=== PATIENT | male | born 1940 | race Caucasian/White ===

== ENCOUNTER 2016-08-14 09:37 | Outpatient (CLI) | payer MEDICARE, OTHER ==
[2016-08-14 16:16] LABS: ALT (SGPT) 18 U/L (0-55); AST (SGOT) 20 U/L (5-34); Alkaline Phosphatase 53 U/L (40-150); Anion Gap 13 mmol/L (10-20); BUN (Urea Nitrogen) 21 mg/dL (8.4-25.7); Bilirubin, Total 0.9 mg/dL (0.2-1.2); Calc. Creatinine Clearance 0 mL/min (70-130); Calcium 10.1 mg/dL (7.8-10.44); Carbon Dioxide 25 mmol/L (23-31); Cardiac Risk 4.8 (Less than 4.5); Chloride 110 mmol/L (98-107); Cholesterol 157 mg/dL (< 200 Desired); Estimated GFR-MDRD 48; Globulin 2.9 g/dL (2.4-3.5); Glucose 98 mg/dL (83-110); HDL Cholesterol 33 mg/dL (>60 Neg Risk); LDL Cholesterol, Calculated 61 mg/dL; Potassium 4.4 mmol/L (3.5-5.1); Protein, Total 6.9 g/dL (5.8-8.1); Sodium 144 mmol/L (136-145); Triglycerides 317 mg/dL (Less than 150)
[2016-08-14 20:33] LABS: #Basophils 0.1 thou/uL (0.0-0.2); #Eosinphils 0.3 thou/uL (0.0-0.7); #Lymphocytes 2.1 thou/uL (1.20-3.40); #Monocytes 0.6 thou/uL (0.11-0.59); #Neutrophils 2.6 thou/uL (1.40-6.50); %Basophils 1.3 % (0.0-1.0); %Eosinophils 5.5 % (0.0-10.0); %Lymphocytes 36.9 % (21.0-51.0); %Monocytes 10.3 % (0.0-10.0); %Neutrophils 46.1 % (42.0-75.0); Hemoglobin 17.1 g/dL (14.0-18.0); Mean Corpuscular HGB CONC 33.5 g/dL (32.0-36.0); Mean Corpuscular Hemoglobin 32.8 pg (27.0-31.0); Mean Platelet Volume 10.2 fL (7.4-10.4); Platelet Count 179 thou/uL (130-400); RBC Distribution Width 12.3 % (11.5-14.5); Red Blood Cell (RBC) Count 5.21 mill/uL (4.70-6.10); White Blood Cell (WBC) Count 5.7 thou/uL (4.8-10.8)
== END 2016-08-14 09:38 | disposition home or self-care (01) ==
LOC: LABLEX 09:37
PROVIDERS: ATTEND Family Medicine
DX: E78.5 Hyperlipidemia, unspecified (principal); I25.10 Atherosclerotic heart disease of native coronary artery without angina pectoris; E78.1 Pure hyperglyceridemia; J44.9 Chronic obstructive pulmonary disease, unspecified; D75.89 Other specified diseases of blood and blood-forming organs
CPT/HCPCS: 80053; 80061; 84443; 85025

== ENCOUNTER 2016-10-29 20:29 | Emergency (ER) | payer MEDICARE, OTHER ==
[2016-10-29 21:07] LABS: ALT (SGPT) 17 U/L (8-55); AST (SGOT) 19 U/L (5-34); Albumin 4.3 g/dL (3.4-4.8); Alkaline Phosphatase 61 U/L (40-150); Anion Gap 17 mmol/L (10-20); BUN (Urea Nitrogen) 21 mg/dL (8.4-25.7); Bilirubin, Total 1.3 mg/dL (0.2-1.2); Calc. Creatinine Clearance 0 mL/min (70-130); Calcium 10.1 mg/dL (7.8-10.44); Carbon Dioxide 21 mmol/L (23-31); Chloride 106 mmol/L (98-107); Estimated GFR-MDRD 52; Globulin 3.8 g/dL (2.4-3.5); Glucose 98 mg/dL (83-110); Potassium 4.3 mmol/L (3.5-5.1); Protein, Total 8.1 g/dL (5.8-8.1); Sodium 140 mmol/L (136-145)
[2016-10-29 21:09] LABS: CKMB 1.4 ng/mL (0-6.6); Troponin I 0.016 ng/mL (< 0.028)
[2016-10-29 21:24] LABS: Hemoglobin 17.4 g/dL (14.0-18.0); Large Platelets SLIGHT; Lymphocytes 15 % (21-51); MDiff Complete? YES; Mean Corpuscular HGB CONC 33.8 g/dL (32.0-36.0); Mean Corpuscular Hemoglobin 32.1 pg (27.0-31.0); Mean Corpuscular Volume 95.1 fl (80.0-94.0); Mean Platelet Volume 10.6 fL (7.4-10.4); Monocytes 7 % (0-10); Neutrophil 78 % (42-75); PLT Morphology Comment Appears Adequate; Platelet Count 198 thou/uL (130-400); RBC Distribution Width 11.9 % (11.5-14.5); RBC Morphology Normal; White Blood Cell (WBC) Count 11.9 thou/uL (4.8-10.8)
[2016-10-29] MEDS ORDERED: Nitroglycerin 0.4 MG TAB (25 Tab Bottle) ONE (21:28)
--- NOTE | 2016-10-29 23:53 | RAD ---
AP PORTABLE CHEST 29 10/29/2016 2056 HOURS COMPARISON: A 02/10/2015 study from [facility]. FINDINGS: The heart size is normal for an AP film. There is no congestive change or pleural effusion. No foc al pulmonary infiltrates are seen. There are some mild fibrotic changes throughout the lungs, parti cularly the lower halves. They are certainly no worse than before. The trachea is midline. IMPRESSION: No acute thoracic findings. POS: HOME
== END 2016-10-29 23:48 | disposition short-term general hospital (02) ==
LOC: BURERS 20:29
DX: R07.9 Chest pain, unspecified (principal); I25.2 Old myocardial infarction; I25.10 Atherosclerotic heart disease of native coronary artery without angina pectoris; E78.5 Hyperlipidemia, unspecified; Z87.891 Personal history of nicotine dependence; Z79.899 Other long term (current) drug therapy; Z79.82 Long term (current) use of aspirin
CPT/HCPCS: 71010; 80053; 82553; 83880; 84484; 85025; 85379; 93005

== ENCOUNTER 2017-04-16 09:34 | Outpatient (CLI) | payer MEDICARE, OTHER ==
--- NOTE | 2017-04-16 22:27 | CT ---
CT OF THE THORAX WITHOUT CONTRAST 04/16/17 Comparison is made with the prior CT dated 10/30/16 done at [facility]. The study is to cory smith a 6 mm lung nodule seen previously in the right lower lobe. Axial slices were acquired today foll owed by coronal and sagittal reconstructions. The exam was done without IV contrast. There has been no significant interval change. Again noted is a small noncalcified nodule in the righ t lower lobe that measures about 6.5 mm in size. It has not changed in size or appearance over the in terval. No new nodules are seen elsewhere. Diffuse emphysematous changes with fibrosis, particularly in the lung bases is noted. There is some bronchiectasis in the lung bases as well, particularly the right lower lobe. A few areas of mild pleural thickening are seen here and there but are of no great concern. The mediastinum showed no masses or adenopathy. Dense coronary artery calcifications are seen in all segments. Scans into the upper abdomen showed no adrenal mass. Some cysts are seen in the dome of the liver, wh ich have not changed since the prior scan. IMPRESSION: 1. 6.5 mm noncalcified nodule in the right lower lobe with no change in size or appearance since the October 2016 scan. Given the presence of emphysema, this probably puts him in a somewhat higher ris k group than lower. Thus, by Fleischner Society criteria, one would consider further followup within 18 months. 2. Diffuse emphysematous changes with fibrosis and some bronchiectasis, similar to before. 3. Coronary arteriosclerosis. Code LN POS: HOME
== END 2017-04-16 09:35 | disposition home or self-care (01) ==
LOC: BURCT 09:34
PROVIDERS: ATTEND Nurse Practitioner
DX: R91.1 Solitary pulmonary nodule (principal); J43.9 Emphysema, unspecified; J84.10 Pulmonary fibrosis, unspecified; J47.9 Bronchiectasis, uncomplicated; I25.10 Atherosclerotic heart disease of native coronary artery without angina pectoris
CPT/HCPCS: 71250

== ENCOUNTER 2018-04-02 08:25 | Outpatient (CLI) | payer MEDICARE, BC ==
[2018-04-02 12:03] LABS: #Eosinphils 0.1 thou/uL (0.0-0.7); #Lymphocytes 1.9 thou/uL (1.20-3.40); #Monocytes 0.5 thou/uL (0.11-0.59); #Neutrophils 3.3 thou/uL (1.40-6.50); %Basophils 0.7 % (0.0-1.0); %Eosinophils 2.4 % (0.0-10.0); %Lymphocytes 31.7 % (21.0-51.0); %Monocytes 8.5 % (0.0-10.0); %Neutrophils 56.7 % (42.0-75.0); Hemoglobin 16.2 g/dL (14.0-18.0); Mean Corpuscular HGB CONC 33.2 g/dL (32.0-36.0); Mean Corpuscular Hemoglobin 32.6 pg (27.0-31.0); Mean Corpuscular Volume 98.2 fL (78.0-98.0); Platelet Count 216 thou/uL (130-400); RBC Distribution Width 12.1 % (11.5-14.5); Red Blood Cell (RBC) Count 4.96 mill/uL (4.70-6.10); White Blood Cell (WBC) Count 5.9 thou/uL (4.8-10.8)
[2018-04-02 22:10] LABS: AST (SGOT) 19 U/L (5-34); Albumin 4.2 g/dL (3.4-4.8); Alkaline Phosphatase 49 U/L (40-150); Anion Gap 13 mmol/L (10-20); BUN (Urea Nitrogen) 17 mg/dL (8.4-25.7); Bilirubin, Total 0.7 mg/dL (0.2-1.2); Calc. Creatinine Clearance 0 mL/min (70-130); Carbon Dioxide 25 mmol/L (23-31); Cholesterol 171 mg/dl (< 200 Desired); Estimated GFR-MDRD 52; Globulin 2.6 g/dL (2.4-3.5); Protein, Total 6.8 g/dL (5.8-8.1); Triglycerides 250 mg/dL (Less than 150)
[2018-04-02 22:11] LABS: ALT (SGPT) 19 U/L (8-55); Calcium 10.1 mg/dL (7.8-10.44); Cardiac Risk 4.5 (Less than 4.5); Chloride 109 mmol/L (98-107); Glucose 105 mg/dL (83-110); HDL Cholesterol 38 mg/dL (>60 Neg Risk); LDL Cholesterol, Calculated 83 mg/dL; Potassium 4.2 mmol/L (3.5-5.1); Sodium 143 mmol/L (136-145)
[2018-04-02 22:45] LABS: Thyroid Stimulating Hormone 1.1268 uIU/mL (0.35-4.94)
== END 2018-04-02 08:26 | disposition home or self-care (01) ==
LOC: BURULT 08:25 → BURLABSP 08:26
PROVIDERS: ATTEND Internal Medicine Nephrology
DX: Z12.5 Encounter for screening for malignant neoplasm of prostate (principal); E78.5 Hyperlipidemia, unspecified; R53.83 Other fatigue; N28.1 Cyst of kidney, acquired
CPT/HCPCS: 36415; 80053; 80061; 84443; 85025; G0103